=== PATIENT | male | born 1990 | race Caucasian/White ===

== ENCOUNTER 2023-10-29 17:11 | Emergency (ER) | payer SELFPAY ==
[~2023-10-29] VITALS: Ht 182.8 cm; Wt 90.7 kg
[2023-10-29] MEDS ORDERED: Tdap Vaccine 0.5 ML SYR (Adult Vaccine) IM ONE (17:40)
== END 2023-10-29 17:55 | disposition home or self-care (01) ==
LOC: ED 17:11
DX: S61.432A Puncture wound without foreign body of left hand, initial encounter (principal); W22.8XXA Striking against or struck by other objects, initial encounter; Y93.89 Activity, other specified; Y92.89 Other specified places as the place of occurrence of the external cause; Y99.8 Other external cause status